=== PATIENT | female | born 1975 | race Caucasian/White ===

== ENCOUNTER 2019-05-02 22:45 | Emergency (ER) | payer OTHER ==
[~2019-05-02] VITALS: Ht 170.2 cm; Wt 68.0 kg
[~2019-05-02 22:45] MED LIST: ALBU.083IS; ALBU.083IS IH; ALBU4; ALBU90I INH; ALBU90OI; ALBU90OI INH; ALBU90OI6 INH; ALBU90OI61 INH; AMOX500 PO; AXERT; AZIT250 PO; CIPR500 PO; CLOP75; CYCL10 PO; DIPH50 PO; DOXY100 PO; ELET40TA; EZET10-10; FLUSAL2505; GUAI600T33 PO; HYDACE10B PO; HYDACE5 PO; HYDGUAL120 PO; HYDMOR4 PO; IBUP600 PO; IBUP800 PO; LANS30EC PO; LISI5; LOPE2C PO; LORA1; MECL25 PO; METF500; METO10 PO; NAPR500 PO; NAPR550 PO; NATE60; Naprosyn500 MG PO; Norco 5-325 Ta1 EACH PO; OXYACE5T PO; OXYACE7.5T PO; PIOG30; PRED20 PO; PROC25S PR; PROM25; PROM25 PO; PROM25S PR; PROP120ER PO; PROP80ER; RAMI5; RXHYDGUAS PO; RXOXYACE PO; RXTRAM50 PO; Robaxin500 MG PO; SULTRIDS PO; SUMA6I; TRAM50 PO; Ultram50 MG PO; [UNRECOGNIZED DRUG - REMARK]
[2019-05-02] MEDS ORDERED: Amoxicillin875 MG PO (23:06)
[2019-05-02] MEDS ORDERED: PAROEX473 ML MM (23:06)
[2019-08-18] MEDS ORDERED: Esgic Tablet1 EACH PO (11:11)
[2019-08-18] MEDS ORDERED: AMIT10 PO (11:11)
[2019-08-18] MEDS ORDERED: OLAN10 PO (12:55)
== END 2019-05-02 23:14 | disposition home or self-care (01) ==
LOC: ER 22:45
DX: K04.7 Periapical abscess without sinus (principal); Z79.52 Long term (current) use of systemic steroids; J45.909 Unspecified asthma, uncomplicated; G43.909 Migraine, unspecified, not intractable, without status migrainosus; Z87.891 Personal history of nicotine dependence
CPT/HCPCS: 99282

== ENCOUNTER 2019-06-10 11:45 | Emergency (ER) | payer OTHER ==
[~2019-06-10] VITALS: Ht 170.2 cm; Wt 75.3 kg
[~2019-06-10 11:45] MED LIST changes: +Amoxicillin875 MG PO; +PAROEX473 ML MM
[2019-06-10 12:25] LABS: BASOPHILS ABSOLUTE AUTO 0.03 K/mm3 (0.00-0.23); BASOPHILS PERCENT AUTO 0 % (0-2); EOSINOPHILS ABSOLUTE AUTO 0.13 K/mm3 (0.00-0.68); EOSINOPHILS PERCENT AUTO 2 % (0-6); Hematocrit 39.6 % (33.0-51.0); Hemoglobin 13.1 g/dL (11.5-16.0); IMMATURE GRAN ABSOLUTE AUTO 0.02 K/mm3 (0.00-0.10); IMMATURE GRAN PERCENT AUTO 0 % (0-1); LYMPHOCYTES ABSOLUTE AUTO 1.91 K/mm3 (0.84-5.20); LYMPHOCYTES PERCENT AUTO 27 % (21-46); MONOCYTES ABSOLUTE AUTO 0.59 K/mm3 (0.16-1.47); MONOCYTES PERCENT AUTO 8 % (4-13); Mean Corpuscular HGB 29.9 pg (26.0-34.0); Mean Corpuscular HGB Conc 33.1 g/dL (31.5-36.5); Mean Corpuscular Volume 90 fL (80-100); Mean Platelet Volume 9.4 fL (9.1-12.4); NEUTROPHILS ABSOLUTE AUTO 4.36 K/mm3 (1.96-9.15); NEUTROPHILS PERCENT AUTO 62 % (41-73); Platelet Count 297 K/mm3 (150-400); RDW Coefficient Variation 12.1 % (11.7-14.2); RDW Standard Deviation 40.1 fL (35.1-46.3); Red Blood Cell Count 4.38 M/mm3 (3.80-5.20); White Blood Cell Count 7.04 K/mm3 (4.00-11.30)
[2019-06-10 12:47] LABS: Alanine Aminotransfer (ALT/SGP 18 U/L (12-78); Albumin, Blood 3.6 g/dL (3.4-5.0); Albumin/Globulin Ratio 1.1 (0.8-1.8); Alk Phos 62 U/L (50-136); Anion Gap 8 mmol/L (6-16); Aspartate Aminotrans (AST/SGOT 12 U/L (12-37); Bilirubin, Total 0.5 mg/dL (0.1-1.0); Blood Urea Nitrogen 11 mg/dL (8-24); Bun/Creatinine Ratio 17.2 (12.0-20.0); CO2, Blood 26 mmol/L (21-32); Calcium, Blood 8.5 mg/dL (8.5-10.1); Chloride, Blood 108 mmol/L (98-108); Creatinine, Blood 0.64 mg/dL (0.40-1.00); Globulin, Blood 3.2 g/dL (2.2-4.0); Glomerular Filtration Rate >60 (60-); Glucose, Blood 143 mg/dL (70-99); Potassium, Blood 3.1 mmol/L (3.5-5.5); Sodium, Blood 142 mmol/L (136-145); Total Protein, Blood 6.8 g/dL (6.4-8.2)
[2019-06-10] MEDS ORDERED: Esgic Tablet1 EACH PO (14:22)
[2019-06-10] MEDS ORDERED: PROM25 PO (14:22)
[2019-08-18] MEDS ORDERED: Esgic Tablet1 EACH PO (11:11)
[2019-08-18] MEDS ORDERED: AMIT10 PO (11:11)
[2019-08-18] MEDS ORDERED: OLAN10 PO (12:55)
== END 2019-06-10 14:28 | disposition home or self-care (01) ==
LOC: ER 11:45
PROVIDERS: Physician Assistant
DX: G43.909 Migraine, unspecified, not intractable, without status migrainosus (principal); Z79.52 Long term (current) use of systemic steroids; F32.9 Major depressive disorder, single episode, unspecified; J45.909 Unspecified asthma, uncomplicated; Z87.891 Personal history of nicotine dependence
CPT/HCPCS: 36415; 80053; 83690; 85025; 96361; 96374; 96375; 99284-25; J0780; J1100; J1200; J1885; J7120

== ENCOUNTER 2019-06-17 22:51 | Emergency (ER) | payer OTHER ==
[~2019-06-17] VITALS: Ht 170.2 cm; Wt 72.6 kg
[~2019-06-17 22:51] MED LIST changes: +Esgic Tablet1 EACH PO
[2019-08-18] MEDS ORDERED: AMIT10 PO (11:11)
[2019-08-18] MEDS ORDERED: Esgic Tablet1 EACH PO (11:11)
[2019-08-18] MEDS ORDERED: OLAN10 PO (12:55)
== END 2019-06-18 01:52 | disposition home or self-care (01) ==
LOC: ER 22:51
DX: G43.909 Migraine, unspecified, not intractable, without status migrainosus (principal); Z79.52 Long term (current) use of systemic steroids; Z79.899 Other long term (current) drug therapy; J45.909 Unspecified asthma, uncomplicated; F32.9 Major depressive disorder, single episode, unspecified; Z87.891 Personal history of nicotine dependence
CPT/HCPCS: 96372; 99283; J1630; J1885

== ENCOUNTER 2020-03-25 08:45 | Emergency (ER) | payer OTHER ==
[~2020-03-25] VITALS: Ht 167.6 cm; Wt 77.1 kg
[~2020-03-25 08:45] MED LIST changes: +AMIT10 PO; +OLAN10 PO
[2020-03-25] MEDS ORDERED: ESCI20 PO (08:55)
[2020-03-25] MEDS ORDERED: ZOLP10 PO (08:55)
[2020-03-25] MEDS ORDERED: IBUP800 PO (12:24)
[2020-03-25] MEDS ORDERED: Percocet 7.5-31 EACH PO (12:24)
[2020-03-25] MEDS ORDERED: CRUTCH2 XX (12:25)
== END 2020-03-25 13:24 | disposition home or self-care (01) ==
LOC: ER 08:45
DX: S82.852A Displaced trimalleolar fracture of left lower leg, initial encounter for closed fracture (principal); J45.909 Unspecified asthma, uncomplicated; G43.909 Migraine, unspecified, not intractable, without status migrainosus; F32.9 Major depressive disorder, single episode, unspecified; Z79.899 Other long term (current) drug therapy; Z87.891 Personal history of nicotine dependence; W01.0XXA Fall on same level from slipping, tripping and stumbling without subsequent striking against object, initial encounter
CPT/HCPCS: 27818; 36415; 73600; 73610; 73700; 96374-59; 96375-59; 99152; 99283-25; J1170; J1630; J1885; J2704; J7030

== ENCOUNTER 2020-04-11 19:05 | Emergency (ER) | payer OTHER ==
[~2020-04-11] VITALS: Ht 167.6 cm; Wt 79.4 kg
[~2020-04-11 19:05] MED LIST changes: +CRUTCH2 XX; +ESCI20 PO; +Percocet 7.5-31 EACH PO; +ZOLP10 PO
== END 2020-04-11 21:46 | disposition home or self-care (01) ==
LOC: ER 19:05
DX: Z46.89 Encounter for fitting and adjustment of other specified devices (principal); Z88.8 Allergy status to other drugs, medicaments and biological substances; Z79.899 Other long term (current) drug therapy; F32.9 Major depressive disorder, single episode, unspecified; J45.909 Unspecified asthma, uncomplicated; Z87.891 Personal history of nicotine dependence; Z98.890 Other specified postprocedural states
CPT/HCPCS: 99282-25

== ENCOUNTER 2021-06-08 12:00 | Emergency (ER) | payer OTHER ==
[~2021-06-08] VITALS: Ht 167.6 cm; Wt 90.7 kg
[2021-06-08] MEDS ORDERED: LOSARTAN POTASS25 MG PO (12:07)
== END 2021-06-08 14:55 | disposition home or self-care (01) ==
LOC: ER 12:00
DX: G43.909 Migraine, unspecified, not intractable, without status migrainosus (principal); F12.90 Cannabis use, unspecified, uncomplicated; J45.909 Unspecified asthma, uncomplicated; Z87.891 Personal history of nicotine dependence; Z86.59 Personal history of other mental and behavioral disorders; Z88.8 Allergy status to other drugs, medicaments and biological substances
CPT/HCPCS: 96374; 96375; 99283-25; J0780; J1100; J1885

== ENCOUNTER → 2021-11-12 | Outpatient (CLI) | payer OTHER ==
[~2021-11-12] MED LIST changes: +LOSARTAN POTASS25 MG PO; +ONDA4ODT MM; +POTCHL20ER PO
[2021-11-12 13:32] LABS: Anion Gap 8 mmol/L (6-16); Blood Urea Nitrogen 16 mg/dL (8-24); Bun/Creatinine Ratio 22.2 (12.0-20.0); CO2, Blood 29 mmol/L (21-32); Calcium, Blood 9.6 mg/dL (8.5-10.1); Chloride, Blood 103 mmol/L (98-108); Creatinine, Blood 0.72 mg/dL (0.40-1.00); Free Thyroxine 1.07 ng/dL (0.70-1.60); Glomerular Filtration Rate >60 (60-); Glucose, Blood 122 mg/dL (70-99); Magnesium, Blood 1.7 mg/dL (1.6-2.4); Potassium, Blood 3.8 mmol/L (3.5-5.5); Sodium, Blood 140 mmol/L (136-145)
== END | disposition home or self-care (01) ==
LOC: LAB SHORT 09:40
PROVIDERS: Student in an Organized Health Care Education/Training Program
DX: R56.9 Unspecified convulsions (principal)
CPT/HCPCS: 80048; 83735; 84439; 84443

== ENCOUNTER → 2022-09-07 | Outpatient (CLI) | payer OTHER | END | disposition home or self-care (01) | LOC: LAB SHORT 17:31 | PROVIDERS: Family Medicine | DX: G25.81 Restless legs syndrome (principal) | CPT/HCPCS: 82728; 83540; 83550 ==

== ENCOUNTER 2023-01-19 05:48 | Day surgery (SDC) | payer OTHER ==
[~2023-01-19] VITALS: Ht 170.2 cm; Wt 86.0 kg
[~2023-01-19 05:48] MED LIST changes: +GABA300 PO; +LAMOTRIGINE25 M3 PO
--- NOTE | 2023-01-19 18:36 | NUR ---
SHIFT SUMMARY PT A&OX4, VSS/RA, VERONICA PO, VOIDING, AMB SBA FWW & GB, UP TO CHAIR, PAIN MANAGED PER EMAR. S/P R ALCON, NATHANIEL CDI, PHYSICAL THERAPY EVAL'D, SECOND SESSION IN AM. WILL REPORT TO ONCOMING NOC RN.
--- NOTE | 2023-01-20 04:48 | NUR ---
LINING STAMPER SUMMARY PT IS POD 0 FOR A R ALCON. AQUACEL DRESSING TO R HIP C/D/I. PT HAS BEEN ABLE TO AMBULATE WITH A FWW AND 1 ASSIST TO THE BATHROOM SEVERAL TIMES TONIGHT. PAIN CONTROLLED WITH 1 TAB OXYCODONE ALONG WITH SCHEDULED TYLENOL AND TORADOL. TOLERATING PO INTAKE WITH NO ISSUE. VSS, WILL CONTINUE TO MONITOR.
[2023-01-20 06:30] LABS: BASOPHILS ABSOLUTE AUTO 0.03 K/mm3 (0.00-0.23); BASOPHILS PERCENT AUTO 0 % (0-2); EOSINOPHILS ABSOLUTE AUTO 0.05 K/mm3 (0.00-0.68); EOSINOPHILS PERCENT AUTO 0 % (0-6); Hematocrit 34.2 % (33.0-51.0); Hemoglobin 11.5 g/dL (11.5-16.0); IMMATURE GRAN ABSOLUTE AUTO 0.05 K/mm3 (0.00-0.10); IMMATURE GRAN PERCENT AUTO 0 % (0-1); LYMPHOCYTES ABSOLUTE AUTO 2.77 K/mm3 (0.84-5.20); LYMPHOCYTES PERCENT AUTO 18 % (21-46); MONOCYTES ABSOLUTE AUTO 1.73 K/mm3 (0.16-1.47); MONOCYTES PERCENT AUTO 11 % (4-13); Mean Corpuscular HGB 30.5 pg (26.0-34.0); Mean Corpuscular HGB Conc 33.6 g/dL (31.5-36.5); Mean Corpuscular Volume 91 fL (80-100); Mean Platelet Volume 9.3 fL (9.1-12.4); NEUTROPHILS ABSOLUTE AUTO 11.22 K/mm3 (1.96-9.15); NEUTROPHILS PERCENT AUTO 71 % (41-73); Platelet Count 282 K/mm3 (150-400); RDW Coefficient Variation 12.3 % (11.7-14.2); RDW Standard Deviation 40.9 fL (35.1-46.3); Red Blood Cell Count 3.77 M/mm3 (3.80-5.20); White Blood Cell Count 15.85 K/mm3 (4.00-11.30)
[2023-01-20 06:50] LABS: Bun/Creatinine Ratio 23.2 (12.0-20.0); Calcium, Blood 8.8 mg/dL (8.5-10.1); Creatinine, Blood 0.78 mg/dL (0.40-1.00); Potassium, Blood 3.6 mmol/L (3.5-5.5)
[2023-01-20] MEDS ORDERED: ASPI81CH PO (09:41)
[2023-01-20] MEDS ORDERED: Percocet 5-3251 EACH PO (09:41)
--- NOTE | 2023-01-20 11:10 | NUR ---
DISCHARGE NOTE: PATIENT WAS EDUCATED ON DISCHARGE INSTRUCTIONS. SHE VERBALIZED UNDERSTANDING OF INSTRUCTIONS AND HAD NO FURTHER QUESTIONS AT THIS TIME. HARD PERSCRIPTIONS ARE IN HER INSTRUCTIONS FOLDER WHICH IS IN HER PERSONAL BAG. IV WAS TAKEN OUT AND WNL. PAIN IS MANAGED WITH ORAL PAIN MEDICATIONS. HER RIGHT HIP HAS AN AQUACEL THAT IS C/D/I. DENIES NUMBNESS OR TINGLING IN ALL EXTREMITIES. SHE IS A SBA WITH FWW AND GAIT BELT. PATIENT IS DRESSED AND HAS PERSONAL ITEMS IN THE ROOM GATHERED. PATIENT WILL BE WHEELCHAIRED DOWN TO HER FATHERS CAR TO BE TAKEN HOME ONCE HE IS HERE TO PICK HER UP.
--- NOTE | 2023-01-20 11:32 | NUR ---
PATIENT IS BEING WHEELCHAIRED DOWN TO HER FATHERS CAR TO BE TAKEN HOME.
== END 2023-01-20 11:33 | disposition home or self-care (01) ==
LOC: ORSCMMR 05:48 → SURS 09:40 → ORSCMMR 11:00 → ORD 11:00 → ORSCMMR 01-20 11:33
PROVIDERS: Orthopaedic Surgery
PROC: 0SR90JZ Replacement of Right Hip Joint with Synthetic Substitute, Open Approach (ICD-10-PCS; principal; 2023-01-19 07:30)
DX: M16.11 Unilateral primary osteoarthritis, right hip (principal); G40.909 Epilepsy, unspecified, not intractable, without status epilepticus; Z87.891 Personal history of nicotine dependence; F41.9 Anxiety disorder, unspecified; Z79.899 Other long term (current) drug therapy
CPT/HCPCS: 27130; 0055T; 36415; 72170; 80048; 85025; 94760; 97110; 97161; 97530; A9270; C1776; J0171; J0690; J0735; J1100; J1170; J1885; J2250; J2370; J2405; J2704; J2795; J3010; J7120